=== PATIENT | female | born 1965 | race Caucasian/White ===

== ENCOUNTER → 2016-12-09 | Outpatient (CLI) | payer OTHER ==
--- NOTE | 2016-12-09 11:51 | MA ---
Screening Digital Mammogram With iCAD Analysis Clinical Indications: Routine screening. Technique: Standard cephalocaudal and mediolateral oblique projections were obtained. This examinatio n was processed by the iCAD computer aided detection system. Comparison: October 2015, October 2009, March 2009. Breast density: Type C; Heterogeneously dense. Findings: CAD was reviewed. There is a possible developing nodular asymmetry in the upper anterior ri ght breast noted on the oblique view. No definite correlate is found in the craniocaudal view. No la picious microcalcifications are seen. The left breast is stable in appearance. Impression: Possible developing right breast nodule requires further evaluation, BI-RADS 0. Recommendation: Spot compression assessment of the right breast with ultrasound suggested if the abno rmality persists on diagnostic evaluation. [facility] will send a result letter to the patient. Dense breast parenchyma diminishes mammographic sensitivity.
== END ==
LOC: CIMAGING 07:33
DX: Z12.31 Encounter for screening mammogram for malignant neoplasm of breast (principal)
CPT/HCPCS: G0202

== ENCOUNTER → 2017-01-02 | Outpatient (CLI) | payer OTHER | LOC: CIMAGING 12:49 | DX: N63 Unspecified lump in breast (principal) | CPT/HCPCS: G0206 ==